=== PATIENT | male | born 1965 | race Caucasian/White ===

== ENCOUNTER → 2022-04-24 | Day surgery (SDC) | payer OTHER ==
[~2022-04-24] MED LIST: CLARITIN10 MG PO; HYDROCODON-ACE1 EAC6 PO; MELOXICAM15 MG PO; NEURONTIN800 MG PO; OMEPRAZOLE40 MG PO; PROVENTIL HFA6.7 GM INH
== END | disposition home or self-care (01) ==
LOC: OR 06:02
DX: C32.0 Malignant neoplasm of glottis (principal); J38.3 Other diseases of vocal cords; F45.8 Other somatoform disorders; R09.81 Nasal congestion; J34.2 Deviated nasal septum; K21.9 Gastro-esophageal reflux disease without esophagitis; G89.29 Other chronic pain; F11.90 Opioid use, unspecified, uncomplicated; F17.210 Nicotine dependence, cigarettes, uncomplicated; J43.9 Emphysema, unspecified
CPT/HCPCS: J1100; J2001; J2250; J2704; J3010

== ENCOUNTER → 2022-04-28 | Outpatient (CLI) | payer OTHER | LOC: CT 14:08 | DX: C32.9 Malignant neoplasm of larynx, unspecified (principal); R05.9 Cough, unspecified; R91.8 Other nonspecific abnormal finding of lung field | CPT/HCPCS: 36415; 70491; 71260; 82565; 84520; Q9967 ==